=== PATIENT | female | born 1955 | race Caucasian/White ===

== ENCOUNTER 2024-12-24 05:42 | Emergency (ER) | payer MEDICARE, OTHER, SELFPAY ==
[2024-12-24 05:52] VITALS: BP 148/86
--- NOTE | 2024-12-24 06:45 | ED.GENMED ---
History of Present Illness
General
Chief Complaint: Musculo-Skeletal Complaint
Time Seen by Provider: 12/24/24 06:35
History of Present Illness
History of Present Illness:
69-year-old female without significant past medical history presenting for left wrist pain. Patient reports yesterday she was trying to move a tree branch in the wind. The tree branch snapped and she fell onto an outstretched hand, injuring her
left wrist. Notes difficulty with range of motion. Denies any additional injuries from the fall. Denies head injury. Denies loss of consciousness. Denies numbness or tingling. Denies additional acute medical complaints.
Phy Exam
Physical Exam
Physical Exam:
General: Well-appearing, no clinical signs of dehydration, nontoxic and in no acute distress
HEENT: protecting airway
Neck: appears supple
CV: Normal heart rate
Resp: No accessory muscle use, no increased work of breathing
Abd: No distention
Extremities: Swelling to the wrist with ecchymosis with limited range of motion. Range of motion to the hand is intact. Distal sensation and pulses intact.
Neuro: alert, no focal neurologic deficit
: deferred
Rectal: deferred
Psych: Normal affect
Skin: Intact
Course
Orders/Labs/Results
Orders:
Orders
12/24/24 05:56
Wrist, Left 3 Views CR [CR Wrist - Left Min 3 Views] Urgent
Comment:
Reason For Exam: injury
Vital Signs
Initial and Last Documented VS:
Initial Vital Signs
Temp Pulse Resp BP Pulse Ox
98.6 F 58 20 148/86 97
12/24/24 05:52 12/24/24 05:52 12/24/24 05:52 12/24/24 05:52 12/24/24 05:52
Last Documented Vital Signs
Temp Pulse Resp BP Pulse Ox
98.6 F 58 20 148/86 97
12/24/24 05:52 12/24/24 05:52 12/24/24 05:52 12/24/24 05:52 12/24/24 06:48
MDM/Problems Addressed
MDM/Problems Addressed:
69-year-old female presenting to the emergency department with left wrist pain. Vital significant for mild hypertension.
On exam patient is resting comfortably, no acute distress or discomfort. Concern for acute fracture and possible dislocation given examination. However at this time no concern for any neurovascular compromise. Plan for x-ray imaging to the wrist.
Patient declining any pain medication at this time.
07:50 -patient's x-ray is consistent with a distal radius fracture. Hematoma block performed with appropriate anesthetic response. Wrist was manipulated. Splinted in sugar-tong and placed in a sling. Otherwise stable for discharge and outpatient
orthopedic follow-up. Advised Tylenol and Motrin for pain. Strict return precautions indicated patient verbalized understanding
*Pulse Oximetry
SaO2: 97
Oxygen Mode of Delivery: Room air
Patient hypoxic: no
*Critical Care Note
Total Time (30-74mins, 75-104mins- exclusive of procedures): Not Applicable
ED Attending Note
-
Portions of this chart may have been created with voice recognition software.� Occasional wrong word or��sound alike� substitutions may have occurred due to the inherent limitations of voice recognition software.
Discharge Plan
Departure
Referrals:
NONE,* [Family Provider, Internal Medicine]
Interventions
Interventions:
*Risk Screen - Suicide Last Done: 12/24/24 05:52
*General Assessment Last Done: 12/24/24 05:52
*Neglect/Abuse Screening Last Done: 12/24/24 05:52
*ED- Fall Risk Assessment Last Done: 12/24/24 05:52
*ED COVID-19 Vaccine History Last Done: 12/24/24 05:52
*ED Influenza Vaccine History Last Done: 12/24/24 05:52
ED-Musculoskeletal Assessment Last Done: 12/24/24 06:10
Discharge Date and Time
Print Language: [id number]
[2024-12-24 07:20] VITALS: BP 144/81
== END 2024-12-24 08:33 | disposition home or self-care (01) ==
LOC: EMR 05:42
PROVIDERS: EMERGENCY PHYSICIAN Student in an Organized Health Care Education/Training Program
DX: S52.572A Other intraarticular fracture of lower end of left radius, initial encounter for closed fracture (principal); S52.612A Displaced fracture of left ulna styloid process, initial encounter for closed fracture; W18.09XA Striking against other object with subsequent fall, initial encounter
CPT/HCPCS: 25605; 99283; 73110